=== PATIENT | male | born 1980 | race Hispanic/Latino ===

== ENCOUNTER 2019-10-08 03:03 | Emergency (ER) | payer BC ==
[~2019-10-08] VITALS: Ht 177.8 cm; Wt 108.0 kg
--- NOTE | 2019-10-08 03:27 | Emergency Department Note ---
History of Present Illnes History of Present Illness History of Present Illness This is a 39 year old male abscess of the abdominal pain for one week . Onset (how long ago): week(s) (1) Location: abd wall Quality: dull Radiation: Denies non-radiation, Denies back, Denies neck, Denies extremity, Denies abdomen, Denies periumbilical, Denies flank, Denies proximal, Denies distal, Denies other Severity: moderate Onset quality: gradual Duration (how long): week(s) (1) Timing of current episode: constant Progression: unchanged Chronicity: new Context: Denies recent illness, Denies recent surgery, Denies recent immobilization, Denies recent travel, Denies trauma/injury, Denies new medications, Denies hx of DVT/PE, Denies non-compliance w/ medications, Denies other Relieving factors: none Exacerbating factors: none Associated symptoms: Reports denies other symptoms Treatments prior to arrival: none Past Medical/Family History Physician Review I have reviewed the patient's past medical and family history. Any updates have been documented here. Past Medical History Past Medical History: None Past Surgical History: None Social History Smoking Cessation: Never Smoker Alcohol Use: Social Review of Systems Review of Systems Constitutional: Reports no symptoms EENTM: Reports no symptoms Cardiovascular: Reports no symptoms Respiratory: Reports no symptoms Gastrointestinal: Reports no symptoms Genitourinary: Reports no symptoms Musculoskeletal: Reports no symptoms Integumentary: Reports as per HPI Neurological: Reports no symptoms Psychological: Reports no symptoms Endocrine: Reports no symptoms Hematological/Lymphatic: Reports no symptoms Physical Exam Related Data Vital signs reviewed: Yes Physical Exam CONSTITUTIONAL Constitutional: Present well-developed, Present well-nourished HENT HENT: Present normocephalic, Present atraumatic, Present oropharynx clear/moist, Present nose normal HENT L/R: Present left ext ear normal, Present right ext ear normal EYES Eyes: Reports PERRL, Reports conjunctivae normal NECK Neck: Present ROM normal PULMONARY Pulmonary: Present effort normal, Present breath sounds normal CARDIOVASCULAR Cardiovascular: Present regular rhythm, Present heart sounds normal, Present capillary refill normal, Present normal rate GASTROINTESTINAL Abdominal: Present soft, Present nontender, Present bowel sounds normal GENITOURINARY Genitourinary: Present exam deferred SKIN Skin: Present warm, Present dry, Present lesion (abscess) MUSCULOSKELETAL Musculoskeletal: Present ROM normal NEUROLOGICAL Neurological: Present alert, Present oriented x 3, Present no gross motor or sensory deficits PSYCHOLOGICAL Psychological: Present mood/affect normal, Present judgement normal Procedures Incision and Drain Emergent situation: Yes Type of anesthesia: local Risks and benefits discussed: Yes Consent given by: patient Prepped and draped in sterile: Yes Procedure verified: Yes Type: abscess Size: 15 x 20 Site: abdomen Skin preparation: Betadine Anesthesia method: local infiltration Patient sedated: No Needle aspiration: No Incision type: single straight Incision depth: dermal Scalpel blade: 11 Drainage: purulent Drainage amount: moderate Packing used: none Patient tolerance: tolerated well Procedure attestation: I performed the procedure Assessment & Plan Medical Decision Making MDM abscess cellulitis Reassessment Reassessment time: 03:26 Reassessment better Assessment & Plan Final Impression: (1) Abscess of abdominal wall Depart Disposition: HOME, SELF-CARE ENRIKE CONNOLLY MD Oct 08, 2019 03:27
[2019-10-08 03:51] VITALS: BP 162/84
== END 2019-10-08 03:51 | disposition home or self-care (01) ==
LOC: FSED 03:15
DX: L02.211 Cutaneous abscess of abdominal wall (principal)
CPT/HCPCS: 19000; 99282

== ENCOUNTER 2022-07-16 20:29 | Emergency (ER) | payer BC ==
[~2022-07-16] VITALS: Ht 175.3 cm; Wt 110.2 kg
[2022-07-16] MEDS ORDERED: BACITRACIN ZINC 0.9GM TP ONE (21:05)
[2022-07-16] MEDS ORDERED: CEPHALEXIN500 MG PO (21:13)
[2022-07-16] MEDS ORDERED: MUPIROCIN22 GM TOP (21:13)
[2022-07-16] MEDS ORDERED: BACTRIM DS TAB1 EACH PO (21:13)
[2022-07-16] MEDS ORDERED: LIDOCAINE 1% 5ML-MPF INJ ONE (21:15)
[2022-07-17] MEDS ORDERED: BACITRACIN ZINC 15 GM OINT TOP SCH (09:00)
== END 2022-07-16 21:35 | disposition home or self-care (01) ==
LOC: FSED 20:31
DX: L03.311 Cellulitis of abdominal wall (principal); L73.9 Follicular disorder, unspecified; F17.210 Nicotine dependence, cigarettes, uncomplicated
CPT/HCPCS: 99283